=== PATIENT | female | born 1985 | race Caucasian/White ===

== ENCOUNTER → 2018-11-30 15:07 | Outpatient (CLI) | payer OTHER, SELFPAY ==
[2018-11-30 16:19] LABS: Add Manual Diff / Slide Review NO; Basophils Absolute Auto 0 /uL (0-100); Basophils Percent Auto 0.3 % (0-2); Eosinophils Absolute Auto 100 /uL (0-450); Eosinophils Percent Auto 0.8 % (2-4); Hematocrit 36.6 % (36-46); Hemoglobin 12.7 g/dL (12.0-16.0); Lymphocytes Absolute Auto 1800 /uL (1100-4500); Mean Corpuscular HGB Conc 34.7 % (30-36); Mean Corpuscular Hemoglobin 31.5 PG (26-34); Mean Corpuscular Volume 90.8 fL (80-100); Monocytes Absolute Auto 500 /uL (0-900); Monocytes Percent Auto 5.3 % (3-14); Neutrophils Absolute Auto 7700 /uL (1500-7000); Neutrophils Percent Auto 75.6 % (50-75); Platelet Count 268 X10^3/uL (150-400); Red Blood Cell Count 4.04 X10^6/uL (4.0-5.2); Red Cell Distribution Width 13.3 % (11.6-14.8); White Blood Cell Count 10.2 X10^3/uL (4.5-11.0)
[2018-11-30 17:01] LABS: Appearance Urine UA CLEAR; Bilirubin Urine UA NEGATIVE (NEGATIVE); Color Urine UA YELLOW; Glucose Urine UA NEGATIVE (Negative); Ketones Urine UA NEGATIVE (NEGATIVE); Leukocyte Esterase Urine UA NEGATIVE (NEGATIVE); Nitrite Urine UA NEGATIVE (Negative); Occult Blood Urine UA NEGATIVE (Negative); Protein Urine UA NEGATIVE (Negative); Urobilinogen Urine UA 0.2 E.U./dL (0.2)
[2018-11-30 17:06] LABS: Hepatitis B Surface Antigen NEGATIVE s/c (NEGATIVE); Rubella Antibody IgG 3.9 IU/mL (>15)
[2018-11-30 17:16] LABS: Hep C Virus Ab w/Reflex Quant NEGATIVE s/c (NEGATIVE)
[2018-11-30 19:11] LABS: HIV 1 & 2 Ab/Ag 4th Gen Combo NEGATIVE (NEGATIVE)
[2018-12-04 15:59] LABS: RPR Screen NONREACTIVE
== END ==
PROVIDERS: PCP Family Medicine; Visit Provider Family Medicine
DX: Z34.81 Encounter for supervision of other normal pregnancy, first trimester (principal)
CPT/HCPCS: 36415; 80055; 81003; 86787; 86803; 86850; 86900; 86901; 87086; 87389

== ENCOUNTER → 2019-01-31 13:56 | Outpatient (CLI) | payer OTHER, SELFPAY ==
--- NOTE | 2019-01-31 13:58 | DI.US.S_ITS ---
PROCEDURE: US OB >= 14 WEEKS FETUS INDICATIONS: ANATOMIC SURVEY OUTSIDE/PRIOR DATING DATA: Last menstrual period (LMP): 08/31/18. LMP-based estimated date of delivery (NATALY): 06/07/19. First dating scan (date and location): 01/31/19. Estimated date of delivery (NATALY) from first dating scan: 06/03/19. TECHNIQUE: Real-time scanning was performed of the fetus, with image documentation and biometric measurements. COMPARISON: None. FINDINGS: General: A single living intrauterine gestation is present. Presentation: Breech. Placenta: Placental position is anterior, without previa. Succenturiate lobe ultrasound is present and Velementous cord insertion is noted. Amniotic fluid index: 16.2 cm, normal range is 5-24 cm. heart rate: 160 beats per minute. Maternal cervical canal: 3.8 cm long. Normal lower limit is 2.5 cm. biometrics: Biparietal diameter: 22 weeks 3 days Head circumference: 22 weeks 3 days Abdominal circumference: 23 weeks Femur length: 22 weeks 2 days Estimated gestational age from initial scan: not applicable. Composite gestational age from present scan: 22 weeks 3 days Estimated weight and percentile: 519 g; 82nd percentile. Measurement variability for biometric dating: +/- 7 days from 14 weeks to 15 weeks 6 days gestation, +/- 10 days from 16 weeks to 21 weeks 6 days gestation, +/- 2 weeks from 22 weeks to 27 weeks 6 days gestation, +/- 3 weeks for 28 weeks gestation or later. weight reference: 4500 g or EFW >90/95% is considered macrosomia or large for gestational age. EFW <10% is small for gestational age. EFW 5% or less is considered intra-uterine growth restriction. Anatomic survey: Neuro: Ventricles are non-dilated at less than 10 mm. Cisterna magna is normal at 3-11 mm. Cerebellum is normal in size and morphology. Nuchal skin fold: Normal at less than 6 mm between 14-21 weeks gestational age. Face: Nose and lips, facial profile are normal. Spine: No evidence for spina bifida. sacral spine was not well imaged. Heart: 4-chambered heart is present, with normal ventricular outflow tracts. Diaphragm: Diaphragm is intact. Stomach: Left-sided stomach is present. Kidneys: No hydronephrosis. Normal is less than 5 mm in 2nd trimester, less than 7 mm in 3rd trimester. Cord: 3-vessel cord has orthotopic insertion. Bladder: Normal in size. Extremities: All 4 extremities identified. IMPRESSION: 1. Single living IUP with mean composite gestational age 22 weeks 3 days corresponding to ultrasound NATALY of 06/03/19. 2. spine not well visualized; otherwise normal anatomic survey. 3. Succenturiate lobe the placenta is present and Velementous cord insertion is noted. Followup recommended. Dictated by: Jacoby LOAIZA Interpreted: Wiley Arechiga MD on 01/31/2019 at 15:58 Approved by: Wiley Arechiga M.D. on 01/31/2019 at 17:25
== END ==
PROVIDERS: PCP Family Medicine; Visit Provider Family Medicine
DX: Z36.89 Encounter for other specified antenatal screening (principal); O28.3 Abnormal ultrasonic finding on antenatal screening of mother; O43.192 Other malformation of placenta, second trimester; O43.122 Velamentous insertion of umbilical cord, second trimester; Z3A.22 22 weeks gestation of pregnancy
CPT/HCPCS: 76811

== ENCOUNTER → 2019-03-09 11:14 | Outpatient (CLI) | payer OTHER, SELFPAY ==
[2019-03-09 12:33] LABS: Hematocrit 33.7 % (36-46); Hemoglobin 11.7 g/dL (12.0-16.0)
[2019-03-09 12:45] LABS: GTT (PREG) 1 Hour PP 50gm Dose 109 mg/dL (76-139)
== END ==
PROVIDERS: PCP Family Medicine; Visit Provider Family Medicine
DX: Z34.82 Encounter for supervision of other normal pregnancy, second trimester (principal); Z3A.26 26 weeks gestation of pregnancy
CPT/HCPCS: 36415; 82950; 85014; 85018

== ENCOUNTER 2019-05-02 12:05 | Observation (INO) | payer OTHER, SELFPAY ==
--- NOTE | 2019-05-02 14:25 | PM.OBTRLD ---
Visit Information Visit Information Date of evaluation: 05/02/19 Primary OB Provider: Nasir Glez Reason for Evaluation: Yes pre-term labor Comments/Additional reasons for admission: Lauri came in due to a change in her baseline [place] contractions this morning. They became more noticeable than usual at about 10 AM. She has a velamentous cord insertion and was told to come in at the first sign of possible labor. Reports good movement and denies leaking or bleeding. Vital Signs Vital Signs: T 36.7 BP 116/63 P 75 [facility] Medical History (Updated 05/02/19 @ 20:10 by Linsey Lin DO) 34 weeks gestation of (Acute) Evaluation Evaluation Baseline heart rate: 130 Variability: Moderate (11-25) monitor accelerations: Present monitor decelerations: Absent Contraction Frequency (minutes): 2 Category of Tracing: I Cervical dilation (cm): 0 Cervical effacement (%): 30 station: -3 Diagnosis, Plan/Disposition Final Diagnosis (1) 34 weeks gestation of : Current Visit: No Status: Acute (2) contractions: Current Visit: No Status: Acute Plan/Disposition Plan: 34 year old at 34+6 weeks gestation. complicated by velamentous cord insertion. Patient came in complaining of regular contractions and was found to be misty q2 min on the monitor. SVE 0/30/-3 which was reassuring. Contractions decreased after nifedipine per protocol and patient reported contractions were even weaker than her usual [place] at that point. She was advised to rest the next several days until her appointment next week. Abstain from intercourse. Note written for work for tomorrow. She is aware she needs to return to the center for contractions, bleeding or leaking fluid. OB Disposition: home
[2019-05-02] MEDS: NIFEdipine 10 MG CAPSULE PO ×4 (15:19→16:37)
== END 2019-05-02 17:52 | disposition home or self-care (01) ==
PROVIDERS: Admitting Provider Family Medicine; PCP Family Medicine; Referring Provider Family Medicine; Visit Provider Family Medicine
DX: O43.123 Velamentous insertion of umbilical cord, third trimester (principal); O47.03 False labor before 37 completed weeks of gestation, third trimester; Z3A.34 34 weeks gestation of pregnancy
CPT/HCPCS: 59025; 59050; G0378; G0379

== ENCOUNTER → 2019-05-09 13:46 | Outpatient (CLI) | payer OTHER, SELFPAY | PROVIDERS: PCP Family Medicine; Visit Provider Family Medicine | DX: Z34.83 Encounter for supervision of other normal pregnancy, third trimester (principal); Z3A.35 35 weeks gestation of pregnancy | CPT/HCPCS: 87077; 87086 ==

== ENCOUNTER → 2019-05-23 12:56 | Outpatient (CLI) | payer OTHER, SELFPAY ==
[2019-05-24 13:09] LABS: Strep Grp B PCR NEG for Grp B Strep
== END ==
PROVIDERS: PCP Family Medicine; Visit Provider Family Medicine
DX: Z34.83 Encounter for supervision of other normal pregnancy, third trimester (principal); Z3A.37 37 weeks gestation of pregnancy
CPT/HCPCS: 87653

== ENCOUNTER 2019-05-30 06:43 | Inpatient (IN) | payer OTHER, MEDICAID, SELFPAY ==
--- NOTE | 2019-05-30 08:09 | P.HP_ITS ---
History of Present Illness History of Present Illness Date Patient Seen: 05/30/19 Time Patient Seen: 07:12 Chief complaint: induction Narrative: 34-year-old 2 para 1 estimated due date of 06/07/2011 38 and 6 7th weeks. care is complicated by sensor rate lobe of placenta with filamentous cord insertion followed by maternal medicine during . Mom also had rubella nonimmune status some mild constipation. Baby's weight on ultrasound has been anywhere from 60-70 percentile. Normal growth during follow-up and normal amniotic fluid. Recommendations for management of filamentous cord insertion and possible sensor rate lobe is early induction if misty which the patient has been to avoid rupture of membranes at home. Patient has had increased frequency of contractions this last week more than for an hour and her cervical exam in the office showed 2-3 cm 80% effaced -1 station because of this patient was brought in early for induction to prevent rupture of membranes outside of the hospital as recommended for maternal medicine. On my exam this morning patient states she is feeling well. She has some mild lower extremity swelling. She is excited to have a baby. She has no headache dizziness chest pain lightheadedness fevers chills nausea or vomiting. No bleeding no spotting. She has had no leakage of fluid. She is still misty intermittently. Her care was reviewed. During the prenata l process she gained approximately 40 lb. She had good routine follow-up during her care. labs O-positive blood type antibody screen negative hemoglobin hematocrit 36.6 and 12.7 platelet count 268 HIV test negative urine culture normal hepatitis-B surface antigen negative GC chlamydia negative rubella immune. Normal 1 hour glucose screening test at 109 GBS status is negative. Patient History Medical History 34 weeks gestation of (Acute) Meds Home Medications and Allergies Home Medications Medication Instructions Recorded Confirmed Type prenat.vits,chidi,snj-qnwf-pluit 1 tab PO DAILY 12/31/18 05/23/19 History nifedipine 10 mg capsule 10 mg PO .COMPLEX #20 cap 05/09/19 05/23/19 Rx Allergies Allergy/AdvReac Type Severity Reaction Status Date / Time No Known Drug Allergies Allergy Verified 05/23/19 13:47 Exam Narrative Exam Narrative: . General: Alert no apparent distress. Affect is appropriate. Misty it is uncomfortable. HEENT: Neck is supple without lymphadenopathy pupils equal round and reactive. Cardio: S1-S2 regular rate and rhythm. Respiratory: Lungs clear to auscultation. Abdomen: Gravid. Extremities: Normal deep tendon reflexes trace edema. Accord: Patient is misty intermittently every 8 8-10 minutes heart tones: heart tones category 1 heart rate 140 average with good accelerations Objective Labs Result Diagrams: 05/30/19 07:43 Assessment & Plan Assessment & Plan narrative: 34-year-old G2 para 1 admitted the hospital at 38 weeks and 6 7 stays for induction of labor. Patient has a filamentous cord insertion fundal with possible sensor rate lobe. Recommendations for early induction if patient was in labor and having cervical change. She is admitted this morning at 3 cm 80% effaced intermittent contractions. Recommendations were to admit before rupture of membranes for controlled environment. Patient's admission orders were written for. Reviewed consents with patient. Discussed plan today. We will start Pitocin augmentation of labor. She will be monitored closely. We will go ahead and provide an epidural when she is ready. We will hold off on rupture of membranes until we have OR on standby for possible distress with rupture of membranes. We have consult to Dr. Prince HUERTA on-call to be on standby as well. Patient's questions were answered her and her partner were agreement with this plan.
[2019-05-30 08:11] LABS: Add Manual Diff / Slide Review NO; Basophils Absolute Auto 0 /uL (0-100); Basophils Percent Auto 0.3 % (0-2); Eosinophils Absolute Auto 100 /uL (0-450); Eosinophils Percent Auto 1.3 % (2-4); Hematocrit 35.3 % (36-46); Lymphocytes Absolute Auto 1500 /uL (1100-4500); Lymphocytes Percent Auto 23.9 % (25-40); Mean Corpuscular Hemoglobin 31.1 PG (26-34); Mean Corpuscular Volume 91.5 fL (80-100); Monocytes Absolute Auto 500 /uL (0-900); Monocytes Percent Auto 8.4 % (3-14); Neutrophils Absolute Auto 4300 /uL (1500-7000); Neutrophils Percent Auto 66.1 % (50-75); Platelet Count 190 X10^3/uL (150-400); Red Blood Cell Count 3.86 X10^6/uL (4.0-5.2); Red Cell Distribution Width 13.9 % (11.6-14.8); White Blood Cell Count 6.5 X10^3/uL (4.5-11.0)
[2019-05-30] MEDS: LACTATED RINGERS 1,000 ML 100 ML IV ×2 (08:12→11:58)
[2019-05-30] MEDS: OXYTOCIN PREMIX 30 UNIT/500 ML PLAST..BAG IV (08:20)
[2019-05-30 09:34] VITALS: BP 112/62
--- NOTE | 2019-05-30 10:59 | PM.OBPNLAB ---
Date/Time Date Patient Seen: 05/30/19 Time Patient Seen: 10:59 Pain Control Pain control: tolerating well and epidural Pelvic Exam Dilation (cm): 3 Effacement (%): 80 station: -1 Contractions Contractions on admission: irregular Monitor mode: External Contraction pattern: Regular Contraction intensity: Moderate Status status: Category l Heart Rate Baseline: 140 Monitor Accelerations: Present Monitor Decelerations: Absent Monitor Variability: Moderate Assessment and Plan Assessment: induction ongoing Plan: continuous present management Comments: Patient seen doing well. Recently received an epidural good pain control. heart tones category 1. Station of baby -1. 3 cm 80%. Ongoing Pitocin augmentation. Contractions were uncomfortable. Anticipate rupture of membranes at approximately 12:00 p.m.. OR will be on-call. Dr. Prince llamas.
--- NOTE | 2019-05-30 12:32 | PM.OBPNLAB ---
Date/Time Date Patient Seen: 05/30/19 Time Patient Seen: 12:32 Pain Control Pain control: tolerating well and epidural Pelvic Exam Dilation (cm): 4 Effacement (%): 80 station: -1 Amniotic membrane status: Ruptured Contractions Contractions on admission: irregular Monitor mode: External Contraction pattern: Regular Contraction intensity: Moderate Status status: Category l Heart Rate Baseline: 140 Monitor Accelerations: Present Monitor Decelerations: Absent Monitor Variability: Moderate Assessment and Plan Assessment: induction ongoing Plan: continuous present management Comments: Patient on Pitocin. Head well engaged -1 station. Vertex position. Bulging amniotic sac. After discussion risks benefits of rupture of membrane with patient and partner and concerns because of the filamentous cord rupture of amniotic sac was done clear fluid. Mom tolerated the procedure well. Baby did well after rupture of membranes. Mom has epidural anesthesia pain is well controlled. Most recent vital signs are stable. Pitocin rate discussed with nursing staff. Ongoing induction of labor. Anticipate better progression now that we have rupture of membranes.
--- NOTE | 2019-05-30 17:42 | PM.PROC.1 ---
Procedures Date/Time Date of procedure: 05/30/19 Time of procedure: 17:42 General Procedure description: Stage I of labor. Patient was admitted to labor and delivery floor for induction of labor at 38 and 6 7th weeks for concerned about filamentous cord and mom was dilated hand intermittent misty. She came in she was dilated to 3 cm 80% effaced -1 station. Baby's head was vertex. She had IVC BC and blood count done and had Pitocin augmentation and duction of labor. Patient after having adequate contractions became painful and had a epidural placed she tolerated that well without difficulty. She made good progress during the 1st stage of labor. At approximately 12:30 p.m. she had rupture of membranes with clear fluid. Over was on standby in case there was excessive bleeding or deceleration of heart rate. She continued to progress until complete about 415. During stage I of labor she had category 1 and category 2 tracing vital signs were stable. Tolerating labor well. Stage II of labor category 2 tracing. Patient pushed to deliver a viable male infant in approximately 10 minutes. Patient made good descent down through the canal. At the delivery of the head the baby's heart rate was in the mid 70s. And just with pushing baby was delivered with the tear to the midline and left lateral vaginal area. Baby was delivered with occiput anterior. Had delivery of the shoulders without nuchal cord baby was placed on the mother's abdomen. The cord was then cut and transected in baby was placed on the warmer. Baby had a good heart rate. Stage III of labor. Patient had delivery of intact placenta with three-vessel cord with filamentous insertion at the lateral edge of the placenta. Did not appreciate true sensory lobe. On inspection of the placenta. Then she had repair of a midline 2nd degree tear and a left-sided lateral laceration. There was a small blood vessel was breathing on the left-sided laceration of the vagina. Which was found to be adequate hemostasis at the time of this dictation. Mom and baby were resting comfortable after Apgars were 7 and 9
[2019-05-30] MEDS: IBUPROFEN 600 MG TABLET PO (20:43)
[2019-05-31] MEDS: IBUPROFEN 600 MG TABLET PO ×2 (04:32→13:28)
[2019-05-31 06:59] LABS: Hemoglobin 10.1 g/dL (12.0-16.0)
--- NOTE | 2019-05-31 07:42 | P.DS_ITS ---
History of Present Illness History of Present Illness Chief complaint: Induction Narrative: 34-year-old 2 para 1 estimated due date of 06/07/2011 38 and 6 7th weeks. care is complicated by sensor rate lobe of placenta with filamentous cord insertion followed by maternal medicine during . Mom also had rubella nonimmune status some mild constipation. Baby's weight on ultrasound has been anywhere from 60-70 percentile. Normal growth during follow-up and normal amniotic fluid. Recommendations for management of filamentous cord insertion and possible sensor rate lobe is early induction if misty which the patient has been to avoid rupture of membranes at home. Patient has had increased frequency of contractions this last week more than for an hour and her cervical exam in the office showed 2-3 cm 80% effaced -1 station because of this patient was brought in early for induction to prevent rupture of membranes outside of the hospital as recommended for maternal medicine. On my exam this morning patient states she is feeling well. She has some mild lower extremity swelling. She is excited to have a baby. She has no headache dizziness chest pain lightheadedness fevers chills nausea or vomiting. No bleeding no spotting. She has had no leakage of fluid. She is still misty intermittently. Her care was reviewed. During the process she gained approximately 40 lb. She had good routine follow-up during her care. labs O-positive blood type antibody screen negative hemoglobin hematocrit 36.6 and 12.7 platelet count 268 HIV test negative urine culture normal hepatitis-B surface antigen negative GC chlamydia negative rubella immune. Normal 1 hour glucose screening test at 109 GBS status is negative. Discharge Providers Provider Date of admission: 05/30/19 06:43 Discharge Date: 05/31/19 Primary care physician: Nasir Glez MD Consults: 05/31/19 17:40 Consult to Sales Executive Routine Comment: Discharge provider: Nasir Glez MD Summary Hospital Course Discharge Diagnosis: Term intrauterine Vaginal delivery Early induction due to vilamentous cord insertion and since sure rate lobe Repair of midline second-degree tear and left-sided elida vaginal wall tear care normal Hospital Course: Induction of labor with Pitocin. Patient delivered a viable male Apgars 7 and 9. Routine care. The time of discharge she was tolerating diet her pain was well controlled she was ambulating. No difficulty with urine no bowel movement vaginal bleeding was expected. Had some lower extremity edema symmetric. Blood pressure vital signs were stable. Discharge instructions were provided. Tylenol ibuprofen and vitamins. Patient will follow-up in 6 weeks for checkup. Objective Labs Result Diagrams: 05/31/19 06:39 Labs: Laboratory Results - last 24 hr 05/30/19 05/30/19 05/31/19 07:43 07:43 06:39 WBC 6.5 RBC 3.86 L Hgb 12.0 10.1 L Hct 35.3 L 29.0 L MCV 91.5 MCH 31.1 MCHC 34.0 RDW 13.9 Plt Count 190 Neut % (Auto) 66.1 Lymph % (Auto) 23.9 L [place] % (Auto) 8.4 Eos % (Auto) 1.3 L Baso % (Auto) 0.3 Neut # (Auto) 4300 Lymph # (Auto) 1500 [place] # (Auto) 500 Eos # (Auto) 100 Baso # (Auto) 0 Blood Type O Positive Antibody Screen Negative Discharge Plan Discharge Plan Patient Disposition: Home Discharge orders & Medications Prescriptions: New docusate sodium [DOK] 100 mg Capsule 100 mg PO BID Qty: 30 RF: 0 ibuprofen 600 mg Tablet 600 mg PO Q6HR PRN (Reason: Pain, Mild (1-3)) Qty: 30 RF: 0 Continued prenat.vits,chidi,hxh-ziyu-bqeyu Tablet 1 tab PO DAILY RF: 0 Discontinued nifedipine 10 mg capsule 10 mg PO .COMPLEX Qty: 20 RF: 0 Follow up/Referrals: Nasir Glez MD [Primary Care Provider] - Visit Report/Discharge Packet Visit Report Forms: Patient Portal/API, Stroke Signs & Symptoms Discharge Data Primary Care Provider: Nasir Glez Attending Provider: Nasir Glez Admit Date/Time: 05/30/19 06:43
[2019-05-31 16:53] VITALS: BP 104/56; PULSE 62; RESP 18; TEMP 36.6
== END 2019-05-31 18:35 | disposition home or self-care (01) | DRG 807 ==
PROVIDERS: Admitting Provider Family Medicine; PCP Family Medicine; Referring Provider Family Medicine; Visit Provider Family Medicine
DX: O43.193 Other malformation of placenta, third trimester (principal); Z37.0 Single live birth; O43.123 Velamentous insertion of umbilical cord, third trimester; Z3A.38 38 weeks gestation of pregnancy; O70.1 Second degree perineal laceration during delivery
CPT/HCPCS: 01967; 36415; 59050; 59400; 85014; 85018; 85025; 86850; 86900; 86901; G0379; J2590

== ENCOUNTER → 2020-12-23 17:44 | Outpatient (CLI) | payer OTHER, MEDICAID, SELFPAY | PROVIDERS: PCP Family Medicine; Visit Provider Nurse Practitioner Family | DX: R31.9 Hematuria, unspecified (principal) | CPT/HCPCS: 87086 ==